=== PATIENT | female | born 1980 | race Caucasian/White ===

== ENCOUNTER 2019-01-14 22:58 | Emergency (ER) | payer OTHER ==
[2019-01-15] MEDS: LORAZEPAM 2 MG INJ IV (01:30)
[2019-01-15 01:53] LABS: ADD MAN DIFF? NO
[2019-01-15 01:58] LABS: WHITE BLOOD COUNT 7.2 10^3/ul (4.8-10.8)
[2019-01-15 01:59] LABS: BASOPHILS % 0.6 % (0.0-2.0); EOSINOPHILS % 0.3 % (0.0-7.0); HEMATOCRIT 43.8 % (37.0-47.0); LYMPHOCYTES % 13.6 % (15.0-51.0); MEAN CORPUSCULAR HEMOGLOBIN 31.4 pg (29.0-33.0); MEAN CORPUSCULAR HGB CONC 34.2 g/dl (32.0-37.0); MEAN CORPUSCULAR VOLUME 91.6 fl (82.0-101.0); MEAN PLATELET VOLUME 9.2 fl (7.4-10.4); MONOCYTE # 0.7 10^3/ul (0.3-0.9); MONOCYTES % 9.5 % (0.0-11.0); NEUTROPHIL # 5.4 10^3/ul (1.6-7.5); NEUTROPHILS % 75.6 % (39.0-77.0); PLATELET COUNT 210 10^3/UL (140-415); RED BLOOD COUNT 4.78 10^6/ul (4.20-5.40)
[2019-01-15 02:07] LABS: ADD UMIC YES; UR ASCORBIC ACID NEGATIVE (NEGATIVE); UR BILIRUBIN (Dip) NEGATIVE (NEGATIVE); UR BLOOD (Dip) NEGATIVE (NEGATIVE); UR CLARITY CLEAR (CLEAR); UR COLOR YELLOW (YELLOW); UR GLUCOSE (Dip) NEGATIVE (NEGATIVE); UR KETONES (Dip) 2+ mg/dL (NEGATIVE); UR LEUKOCYTE ESTERASE (Dip) NEGATIVE Leu/ul (NEGATIVE); UR MUCUS FEW /HPF (NONE SEEN); UR NITRITE (Dip) NEGATIVE (NEGATIVE); UR RBC 3 /HPF (0-5); UR SPECIFIC GRAVITY (Dip) 1.021 (1.003-1.030); UR TOTAL PROTEIN (Dip) 1+ mg/dl (NEGATIVE); UR UROBILINOGEN (Dip) NEGATIVE (NEGATIVE); UR WBC 2 /HPF (0-5)
[2019-01-15 02:12] LABS: ALANINE AMINOTRANSFERASE 38 IU/L (13-69); ALBUMIN 5.1 g/dl (3.3-4.9); ALBUMIN/GLOBULIN RATIO 1.45; ALKALINE PHOSPHATASE 84 IU/L (42-121); ANION GAP 15 (5-13); ASPARTATE AMINO TRANSFERASE 45 IU/L (15-46); BILIRUBIN,INDIRECT 2.3 mg/dl (0-1.1); BILIRUBIN,TOTAL 2.3 mg/dl (0.2-1.3); BLOOD UREA NITROGEN 14 mg/dl (7-20); CALCIUM 9.8 mg/dl (8.4-10.2); CARBON DIOXIDE 24 mmol/L (21-31); CHLORIDE 101 mmol/L (97-110); CREATININE 0.68 mg/dl (0.44-1.00); Estimated GFR > 60 mL/min (>60); GLUCOSE 70 mg/dl (70-220); POTASSIUM 3.9 mmol/L (3.5-5.1); SODIUM 140 mmol/L (135-144); TOTAL PROTEIN 8.6 g/dl (6.1-8.1)
[2019-01-15 02:23] LABS: B-TYPE NATRIURETIC PEPTIDE 19 PG/ML (0-125); TROPONIN-I < 0.012 ng/ml (0.000-0.120)
== END 2019-01-15 03:31 | disposition home or self-care (01) ==
LOC: E/R 22:58
DX: R07.9 Chest pain, unspecified (principal)
CPT/HCPCS: 36415; 71045; 80053; 81001; 83880; 84484; 85025; 93005; 96374; 99285-25